=== PATIENT | male | born 1995 | race Caucasian/White ===

== ENCOUNTER 2023-12-10 09:51 | Emergency (ER) | payer BC, OTHER, SELFPAY ==
[2023-12-10 10:29] LABS: Bilirubin Negative (Negative); Blood, Urine Moderate (Negative); Clarity Clear (Clear); Glucose, Urine (Dipstick) Negative (Negative); Ketone, Urine Negative (Negative); Leukocyte Negative (Negative); Nitrite Negative (Negative); Protein, Urine (Dipstick) Negative (Neg-Trace); Urobilinogen 0.2 mg/dL (Less than 2)
[2023-12-10 10:35] LABS: CAUTI Indications for Culture Dysuria,urgency,freq; Squamous Epithelial 0-3 HPF (0-3); WBC/HPF None Seen HPF (0-3)
[2023-12-10 10:36] LABS: Bacteria/HPF None Seen HPF (None Seen); RBC/HPF 0-3 HPF (0-3); Urine Culture Reflex No No
[2023-12-10] MEDS ORDERED: Sodium Chloride 0.9% 1,000 ML ONE (11:18)
[2023-12-10] MEDS ORDERED: Piperacillin/Tazobactam 4.5 GM VIAL ONE (11:18)
[2023-12-10] MEDS ORDERED: Sodium Chloride 0.9% 100 ML ONE (11:18)
[2023-12-10 11:21] LABS: #Basophils 0.1 thou/uL (0.0-0.2); #Eosinphils 0.1 thou/uL (0.0-0.7); #Monocytes 0.6 thou/uL (0.11-0.59); #Neutrophils 12.6 thou/uL (1.40-6.50); %Basophils 0.5 % (0.0-1.0); %Eosinophils 0.3 % (0.0-10.0); %Lymphocytes 13.2 % (21.0-51.0); %Monocytes 3.8 % (0.0-10.0); %Neutrophils 82.1 % (42.0-75.0); Hematocrit 44.5 % (42.0-52.0); Mean Corpuscular HGB CONC 33.7 g/dL (32.0-36.0); Mean Corpuscular Hemoglobin 28.1 pg (27.0-31.0); Mean Corpuscular Volume 83.4 fl (78.0-98.0); Mean Platelet Volume 6.3 fL (7.4-10.4); Platelet Count 229 10x3/uL (130-400); RBC Distribution Width 11.7 % (11.5-14.5); Red Blood Cell (RBC) Count 5.33 mill/uL (4.70-6.10); White Blood Cell (WBC) Count 15.3 10x3/uL (4.8-10.8)
[2023-12-10] MEDS ORDERED: Ondansetron PF 4 MG/2 ML Vial ONE (11:28)
[2023-12-10 11:32] LABS: INR-International Normal Ratio 0.9; Prothrombin Time 12.4 sec (12.0-14.7)
[2023-12-10 11:33] LABS: PTT 26.3 sec (22.9-36.1)
[2023-12-10 11:41] LABS: ALT (SGPT) 26 U/L (8-55); AST (SGOT) 16 U/L (5-34); Albumin 4.2 g/dL (3.5-5.0); Alkaline Phosphatase 66 U/L (40-110); Anion Gap 15 mmol/L (10-20); BUN (Urea Nitrogen) 15 mg/dL (8.9-20.6); Bilirubin, Total 1.2 mg/dL (0.2-1.2); CK (CPK) 165 U/L (30-200); Calc. Creatinine Clearance 0 mL/min (70-130); Calcium 9.6 mg/dL (7.8-10.44); Carbon Dioxide 25 mmol/L (22-29); Chloride 105 mmol/L (98-107); Estimated GFR 118; Globulin 3.3 g/dL (2.4-3.5); Glucose 94 mg/dL (70-105); Potassium 4.1 mmol/L (3.5-5.1); Protein, Total 7.5 g/dL (6.0-8.3); Sodium 141 mmol/L (136-145)
== END 2023-12-10 11:51 | disposition short-term general hospital (02) ==
LOC: NAV ERS 09:51
DX: K37 Unspecified appendicitis (principal); Z55.6 Problems related to health literacy
CPT/HCPCS: 74176; 80053; 81001; 82550; 83605; 85025; 85610; 85730; 87040; 93005; 96374; 96375; J2405; J2543; J7030